=== PATIENT | male | born 1985 | race Caucasian/White ===

== ENCOUNTER 2017-06-07 08:57 | Emergency (ER) | payer SELFPAY ==
[2017-06-07 08:59] VITALS: BP 136/54; PULSE 60; RESP 14; TEMP 97.6; O2SAT 98
[2017-06-07] MEDS ORDERED: MEDR4PAK PO (09:43)
--- NOTE | 2017-06-07 09:44 | PD ---
HPI Chief Complaint: Skin Problem Time Seen by Provider: 09:36 Travel History International Travel<30 days: No Contact w/Intl Traveler<30days: No Traveled to known affect area: No History of Present Illness HPI 32-year-old male presents to the emergency department requesting oral steroids for dermatitis to his right [place] and acyclovir for possible genital herpes outbreak. Has been told by his primary care provider he has dermatitis. The rash has been to his right leg for many years and has worsened over the past several months. He says the only thing that works is oral steroids. Says the rash is itchy. Denies fever, vomiting. Denies any contact with lotions, soaps , detergents, foods, medications, environmental exposures. Has history of genital herpes and has a small bump on his penis that is consistent with past genital herpes outbreaks. Area feels irritated. Denies penile drainage, pain. Denies testicular pain or swelling. Primary care provider is Dr. Addison. Denies significant past medical history. No known allergies. Has no other medical complaints. No other modifying factors or associated signs and symptoms. PFSH Past Medical History Medical History: Denies Significant Hx Tetanus Vaccination: < 5 Years Past Surgical History Surgical History: No Previous Surgery Social History Alcohol Use: No Tobacco Use: No Substance Use: No Allergies-Medications (Allergen,Severity, Reaction): Coded Allergies: No Known Allergies (Unverified , 06/07/17) Reported Meds & Prescriptions Reported Meds & Active Scripts Active Zovirax (Acyclovir) 800 Mg Tab 800 Mg PO BID 5 Days Medrol Dosepak (Methylprednisolone) 4 Mg Dspk 4 Mg PO DIRECTED Per Pharmacist direction Review of Systems Except as stated in HPI: all other systems reviewed are Neg Physical Exam Narrative GENERAL: Well-nourished, well-developed male patient, in no acute distress SKIN: Warm and dry. Right [place] with dry, mildly erythemic, slightly raised, maculopapular rash; no signs of cellulitis or drainage; no signs of infection. Right lower extremity is supple and nontender with 2+ pedal pulse and sensory intact without erythema or edema. HEAD: Atraumatic. Normocephalic. EYES: Pupils equal and round. No scleral icterus. No injection or drainage. ENT: Mucosa pink and moist. Airway patent. NECK: Trachea midline. CARDIOVASCULAR: Regular rate. RESPIRATORY: No accessory muscle use. GASTROINTESTINAL: Flat. MUSCULOSKELETAL: No obvious deformities. No clubbing. No cyanosis. No edema. NEUROLOGICAL: Awake and alert. Oriented 3. No obvious cranial nerve deficits. Motor grossly within normal limits. Normal speech. PSYCHIATRIC: Appropriate mood and affect; insight and judgment normal. Data Data Last Documented VS Vital Signs Date Time Temp Pulse Resp B/P (MAP) Pulse Ox O2 Delivery O2 Flow Rate FiO2 06/07/17 08:59 97.6 60 14 136/54 (81) 98 Orders Orders Ed Discharge Order (06/07/17 09:45) [facility] Medical Decision Making Medical Screen Exam Complete: Yes Emergency Medical Condition: Yes Medical Record Reviewed: Yes Differential Diagnosis Dermatitis, psoriasis, eczema Narrative Course 32-year-old male with rash to his right [place] that he was told was dermatitis. Denies new or recent exposures. Denies fever, vomiting. There are no signs of infection. Requesting oral steroids. Also requesting acyclovir for possible genital herpes outbreak. Has history of genital herpes. Medrol Dosepak and acyclovir prescribed for home. Instructed patient to follow up with primary care provider. Patient verbalizes understanding and agreement with treatment plan. Patient is medically cleared and stable for discharge. Discussed reasons to return to the emergency department. Patient agrees with treatment plan. The patients vital signs are stable and the patient is stable for outpatient follow-up and treatment. Patient discharged home, stable and in no acute distress. Diagnosis Primary Impression: Dermatitis Additional Impression: Genital herpes Qualified Codes: A60.00 - Herpesviral infection of urogenital system, unspecified Referrals: Primary Care Physician Patient Instructions: Dermatitis (ED), General Instructions, Genital Herpes Simplex (ED) Additional Instructions: Avoid sexual activity for 14 days No sexual activity with your partner/s until they have been treated and waited 14 days Avoid sexual activity while genital sores exist Inform all sexual partners within the past 3-6 months that they need to be evaluated and treated Use condoms every time you have sex Follow-up with primary care provider Return to the emergency department immediately with worsening of symptoms Med/Other Pt SpecificInfo: Prescription(s) given Scripts Acyclovir (Zovirax) 800 Mg Tab 800 MG PO BID for Mgmt Viral Infection for 5 Days, #10 TAB 0 Refills Prov: Teresa Esqueda 06/07/17 Methylprednisolone Dosepak (Medrol Dosepak) 4 Mg Dspk 4 MG PO DIRECTED, #1 DSPK 0 Refills Per Pharmacist direction Prov: Teresa Esqueda 06/07/17 Disposition: 01 DISCHARGE HOME Condition: Stable Teresa Esqueda Jun 07, 2017 09:43
[2017-06-07] MEDS ORDERED: ACYC-101 PO (09:45)
== END 2017-06-07 09:50 | disposition home or self-care (01) ==
LOC: NEPK 08:57
DX: L30.9 Dermatitis, unspecified (principal); A60.00 Herpesviral infection of urogenital system, unspecified
CPT/HCPCS: 99283